=== PATIENT | male | born 1960 | race Caucasian/White ===

== ENCOUNTER 2017-04-27 13:11 | Emergency (ER) | payer SELFPAY ==
[~2017-04-27] VITALS: Ht 172.7 cm; Wt 65.8 kg
[2017-04-27 14:07] VITALS: BP 150/67
== END 2017-04-27 14:48 | disposition home or self-care (01) ==
LOC: ER 13:18
DX: S63.614A Unspecified sprain of right ring finger, initial encounter (principal); Z88.0 Allergy status to penicillin; W22.8XXA Striking against or struck by other objects, initial encounter; Y93.89 Activity, other specified; Y99.8 Other external cause status; Y92.89 Other specified places as the place of occurrence of the external cause
CPT/HCPCS: 73140